=== PATIENT | male | born 1965 | race African-American/Black ===

== ENCOUNTER 2017-10-14 08:11 | Emergency (ER) | payer SELFPAY, BC ==
[2017-10-14 08:51] LABS: ADD MAN DIFF? NO
[2017-10-14 08:55] LABS: BASO % 0 % (0-3); EOS # 0.3 x10^3/uL (0.0-0.7); EOS % 5 % (0-3); HEMATOCRIT 44.6 % (39.0-53.0); HEMOGLOBIN 14.9 g/dL (13.0-17.5); LYMPH # 1.3 x10^3/uL (1.0-4.8); LYMPH % 22 % (24-48); MEAN CORPUSCULAR HEMOGLOBIN 27 pg (25-35); MEAN CORPUSCULAR HGB CONC 33 g/dL (31-37); MEAN CORPUSCULAR VOLUME 80 fL (79-100); MONO # 0.7 x10^3/uL (0.0-1.1); MONO % 12 % (0-9); NEUT # 3.8 x10^3uL (1.8-7.7); NEUT % 62 % (31-73); PLATELET COUNT 213 x10^3/uL (140-400); RED BLOOD COUNT 5.57 x10^6/uL (4.30-5.70); RED CELL DISTRIBUTION WIDTH 14.2 % (11.5-14.5); WHITE BLOOD COUNT 6.2 x10^3/uL (4.0-11.0)
[2017-10-14 09:09] LABS: ANION GAP 6 (6-14); BLOOD UREA NITROGEN 11 mg/dL (8-26); CALCIUM 10.2 mg/dL (8.5-10.1); CARBON DIOXIDE 28 mmol/L (21-32); CHLORIDE 105 mmol/L (98-107); CREATININE 0.8 mg/dL (0.7-1.3); GFR 123.8; GLUCOSE 117 mg/dL (70-99); SODIUM 139 mmol/L (136-145)
[2017-10-14 09:14] LABS: ALBUMIN 3.7 g/dL (3.4-5.0); ALK PHOS 114 U/L (46-116); ALT (SGPT) 51 U/L (16-63); AST (SGOT) 32 U/L (15-37); DIRECT BILIRUBIN 0.1 mg/dL (0.0-0.2); LIPASE 269 U/L (73-393); TOTAL BILIRUBIN 0.3 mg/dL (0.2-1.0); TOTAL PROTEIN 6.8 g/dL (6.4-8.2)
[2017-10-14] MEDS ORDERED: CONTRAST GIVEN MC ×2 (09:15)
[2017-10-14 09:21] LABS: NT-PRO BNP 9 pg/mL (0-124)
[2017-10-14 09:23] LABS: TROPONINI < 0.017 ng/mL (0.000-0.055)
[2017-10-14] MEDS: IOHEXOL 300 MG/ML 100ML VIAL. IV ×2 (09:26)
[2017-10-14] MEDS ORDERED: IV NORMAL SALINE 1000ML BAG 1,000 ML IV ×2 (10:34)
[2017-10-14] MEDS ORDERED: ONDANSETRON PF 4 MG/2 ML VIAL. IV ×2 (10:45)
[2017-10-14] MEDS ORDERED: MORPHINE SULFATE 2 MG/ML DISP.SYRIN. IV ×2 (10:45)
[2017-10-14] MEDS: ASPIRIN CHEWABLE 81 MG TABLET. PO ×2 (10:53)
[2017-10-14 11:21] LABS: THYROID STIM HORMONE (TSH) 0.989 uIU/mL (0.358-3.74)
== END 2017-10-14 11:00 | disposition left against medical advice (07) ==
LOC: ER 08:11
DX: R07.89 Other chest pain (principal); I10 Essential (primary) hypertension; G47.33 Obstructive sleep apnea (adult) (pediatric); E11.9 Type 2 diabetes mellitus without complications; F17.200 Nicotine dependence, unspecified, uncomplicated; R22.2 Localized swelling, mass and lump, trunk; F10.20 Alcohol dependence, uncomplicated; E66.9 Obesity, unspecified; Z68.34 Body mass index [BMI] 34.0-34.9, adult
CPT/HCPCS: 36415; 71045; 71260; 80048; 80076; 83690; 83880; 84443; 84484; 85025; 93005; 99285-25; Q9967

== ENCOUNTER 2017-10-15 10:25 | Inpatient (IN) | payer SELFPAY ==
[2017-10-15 11:16] LABS: ADD MAN DIFF? NO
[2017-10-15 11:22] LABS: BASO % 1 % (0-3); EOS # 0.2 x10^3/uL (0.0-0.7); EOS % 4 % (0-3); HEMATOCRIT 44.9 % (39.0-53.0); HEMOGLOBIN 14.9 g/dL (13.0-17.5); LYMPH # 1.6 x10^3/uL (1.0-4.8); LYMPH % 30 % (24-48); MEAN CORPUSCULAR HEMOGLOBIN 27 pg (25-35); MEAN CORPUSCULAR HGB CONC 33 g/dL (31-37); MEAN CORPUSCULAR VOLUME 81 fL (79-100); MONO # 0.4 x10^3/uL (0.0-1.1); MONO % 7 % (0-9); NEUT # 3.1 x10^3uL (1.8-7.7); NEUT % 59 % (31-73); PLATELET COUNT 227 x10^3/uL (140-400); RED BLOOD COUNT 5.56 x10^6/uL (4.30-5.70); RED CELL DISTRIBUTION WIDTH 14.3 % (11.5-14.5); WHITE BLOOD COUNT 5.4 x10^3/uL (4.0-11.0)
[2017-10-15 11:32] LABS: ANION GAP 10 (6-14); BLOOD UREA NITROGEN 8 mg/dL (8-26); CALCIUM 10.4 mg/dL (8.5-10.1); CARBON DIOXIDE 26 mmol/L (21-32); CHLORIDE 105 mmol/L (98-107); CREATININE 0.7 mg/dL (0.7-1.3); GFR 144.4; GLUCOSE 152 mg/dL (70-99); PARTIAL THROMBOPLASTIN TIME 26 SEC (24-38); PROTHROMBIN TIME PATIENT 12.1 SEC (11.7-14.0); SODIUM 141 mmol/L (136-145)
[2017-10-15 11:37] LABS: TROPONINI < 0.017 ng/mL (0.000-0.055)
[2017-10-15 11:37] LABS: ALBUMIN 3.5 g/dL (3.4-5.0); ALK PHOS 109 U/L (46-116); ALT (SGPT) 50 U/L (16-63); AST (SGOT) 27 U/L (15-37); DIRECT BILIRUBIN 0.1 mg/dL (0.0-0.2); LIPASE 161 U/L (73-393); TOTAL BILIRUBIN 0.2 mg/dL (0.2-1.0); TOTAL PROTEIN 7.1 g/dL (6.4-8.2)
[2017-10-15 11:40] LABS: NT-PRO BNP 13 pg/mL (0-124)
[2017-10-15] MEDS ORDERED: MORPHINE SULFATE 2 MG/ML DISP.SYRIN. IV (12:30)
[2017-10-15] MEDS ORDERED: NITROGLYCERIN SUBLINGUAL 0.4 MG BOTTLE OF 25. SL (12:30)
[2017-10-15] MEDS ORDERED: ONDANSETRON PF 4 MG/2 ML VIAL. IV (12:30)
[2017-10-15] MEDS: ASPIRIN CHEWABLE 81 MG TABLET. PO (13:11)
[2017-10-15] MEDS: CARVEDILOL 12.5 MG TABLET. PO ×2 (15:01→17:53)
[2017-10-15] MEDS: LISINOPRIL 5 MG TABLET. PO (15:01)
[2017-10-15 15:50] LABS: TROPONINI < 0.017 ng/mL (0.000-0.055)
[2017-10-15 18:00] LABS: BARBITURATES NEG (NEG); BENZODIAZEPINES NEG (NEG); CANNABINOIDS NEG (NEG); COCAINE POS (NEG); METHADONE NEG (NEG); OPIATES NEG (NEG); PHENCYCLIDINE NEG (NEG)
[2017-10-15 18:04] LABS: AMPHETAMINE/METHAMPHETAMINE NEG (NEG); ETHANOL, URINE NEG (NEG)
[2017-10-15 19:02] LABS: TROPONINI < 0.017 ng/mL (0.000-0.055)
[2017-10-16 05:35] LABS: ADD MAN DIFF? NO; BASO # 0.1 x10^3/uL (0.0-0.2); BASO % 1 % (0-3); EOS # 0.2 x10^3/uL (0.0-0.7); EOS % 3 % (0-3); HEMATOCRIT 42.1 % (39.0-53.0); HEMOGLOBIN 14.3 g/dL (13.0-17.5); LYMPH % 33 % (24-48); MEAN CORPUSCULAR HEMOGLOBIN 27 pg (25-35); MEAN CORPUSCULAR HGB CONC 34 g/dL (31-37); MEAN CORPUSCULAR VOLUME 81 fL (79-100); MONO # 0.5 x10^3/uL (0.0-1.1); MONO % 8 % (0-9); NEUT # 3.2 x10^3uL (1.8-7.7); NEUT % 54 % (31-73); PLATELET COUNT 202 x10^3/uL (140-400); RED BLOOD COUNT 5.23 x10^6/uL (4.30-5.70); RED CELL DISTRIBUTION WIDTH 14.5 % (11.5-14.5)
[2017-10-16 05:48] LABS: ANION GAP 8 (6-14); BLOOD UREA NITROGEN 12 mg/dL (8-26); CALCIUM 10.6 mg/dL (8.5-10.1); CARBON DIOXIDE 24 mmol/L (21-32); CHLORIDE 106 mmol/L (98-107); CREATININE 0.8 mg/dL (0.7-1.3); GFR 123.8; GLUCOSE 100 mg/dL (70-99); POTASSIUM 3.9 mmol/L (3.5-5.1); SODIUM 138 mmol/L (136-145)
[2017-10-16] MEDS: CARVEDILOL 12.5 MG TABLET. PO ×2 (09:10→17:22)
[2017-10-16] MEDS: LISINOPRIL 5 MG TABLET. PO (09:11)
[2017-10-16] MEDS: FAMOTIDINE 20 MG TABLET. PO (09:11)
== END 2017-10-16 18:40 | disposition home or self-care (01) | DRG 640 ==
LOC: ER 10:25 → 2 SOUTH 12:12
DX: E83.52 Hypercalcemia (principal); I50.21 Acute systolic (congestive) heart failure; R07.89 Other chest pain; I11.0 Hypertensive heart disease with heart failure; E04.9 Nontoxic goiter, unspecified; E11.9 Type 2 diabetes mellitus without complications; E66.9 Obesity, unspecified; Z68.32 Body mass index [BMI] 32.0-32.9, adult; E78.5 Hyperlipidemia, unspecified; F12.90 Cannabis use, unspecified, uncomplicated; F14.10 Cocaine abuse, uncomplicated; Z82.49 Family history of ischemic heart disease and other diseases of the circulatory system; Z91.19 Patient's noncompliance with other medical treatment and regimen; F17.210 Nicotine dependence, cigarettes, uncomplicated; F19.10 Other psychoactive substance abuse, uncomplicated
CPT/HCPCS: 36415; 71045; 80048; 80076; 80307; 83690; 83880; 84484; 85025; 85610; 85730; 93005; 93306; 99285; 99285-25

== ENCOUNTER 2019-06-18 12:13 | Emergency (ER) | payer SELFPAY ==
[~2019-06-18] VITALS: Ht 182.9 cm; Wt 122.5 kg
[~2019-06-18 12:13] MED LIST: ASPI-612 PO; CARV12.511 PO; HYDR12.575 PO; LISI10TA2 PO
[2019-06-18] MEDS ORDERED: cloNIDine HCL 0.1 MG TABLET PO ONE ×2 (13:45→15:15)
--- NOTE | 2019-06-18 13:48 | PHYS DOC ---
Past Medical History Past Medical History: Diabetes-Type II, Hypertension, Other Additional Past Medical Histor: does not take meds for diabetes or htn Past Surgical History: No Surgical History Alcohol Use: Heavy Drug Use: Cocaine, Marijuana Adult General Chief Complaint Chief Complaint: HEADACHE HPI HPI 53-year-old male presents to the emergency department with complaints of elevated blood pressure. Patient has a history of hypertension, previously had been on 3 medications however has not taken them in a number of months. He states he started a new job has had some stresses associated with that. He denies any headache, chest pain, shortness of breath, nausea or vomiting. He states in the past he's had some migraine headaches however this relieved with Advil. Patient denies any headache or visual changes,. Nothing makes his symptoms worse, nothing makes his symptoms better. Review of Systems Review of Systems Constitutional: Denies fever or chills [] Eyes: Denies change in visual acuity, redness, or eye pain [] Respiratory: Denies cough or shortness of breath [] Cardiovascular: No additional information not addressed in HPI [] GI: Denies abdominal pain, nausea, vomiting, bloody stools or diarrhea [] Neurologic: Denies headache, focal weakness or sensory changes [] All other systems were reviewed and found to be within normal limits, except as documented in this note. Current Medications Current Medications Current Medications Medications (Trade) Dose Ordered Sig/Bernardo Start Time Stop Time Status Last Admin Dose Admin Clonidine HCl (Catapres) 0.1 mg 1X ONCE 06/18/19 15:15 06/18/19 15:16 Allergies Allergies Allergies Coded Allergies Type Severity Reaction Last Updated Verified No Known Drug Allergies 08/22/14 No Physical Exam Physical Exam Constitutional: Well developed, well nourished, no acute distress, non-toxic appearance. [] HENT: Normocephalic, atraumatic, bilateral external ears normal, oropharynx moist, no oral exudates, nose normal. [] Eyes: PERRLA, EOMI, conjunctiva normal, no discharge. [] Cardiovascular:Heart rate regular rhythm, no murmur [] Lungs & Thorax: Bilateral breath sounds clear to auscultation [] Abdomen: Bowel sounds normal, soft, no tenderness, no masses, no pulsatile masses. [] Skin: Warm, dry, no erythema, no rash. [] Extremities: No tenderness,no edema. [] Neurologic: Alert and oriented X 3, no focal deficits noted. [] Psychologic: Affect normal, judgement normal, mood normal. [] Current Patient Data Vital Signs Vital Signs Date Time Temp Pulse Resp B/P (MAP) Pulse Ox O2 Delivery O2 Flow Rate FiO2 06/18/19 13:45 93 160/108 06/18/19 13:27 98.0 16 95 Room Air 98.0 Lab Values Laboratory Tests Test 06/18/19 14:00 White Blood Count 7.8 x10^3/uL (4.0-11.0) Red Blood Count 5.67 x10^6/uL (4.30-5.70) Hemoglobin 15.6 g/dL (13.0-17.5) Hematocrit 45.0 % (39.0-53.0) Mean Corpuscular Volume 79 fL (79-100) Mean Corpuscular Hemoglobin 28 pg (25-35) Mean Corpuscular Hemoglobin Concent 35 g/dL (31-37) Red Cell Distribution Width 14.1 % (11.5-14.5) Platelet Count 257 x10^3/uL (140-400) Neutrophils (%) (Auto) 69 % (31-73) Lymphocytes (%) (Auto) 20 % (24-48) L Monocytes (%) (Auto) 7 % (0-9) Eosinophils (%) (Auto) 3 % (0-3) Basophils (%) (Auto) 1 % (0-3) Neutrophils # (Auto) 5.4 x10^3/uL (1.8-7.7) Lymphocytes # (Auto) 1.6 x10^3/uL (1.0-4.8) Monocytes # (Auto) 0.5 x10^3/uL (0.0-1.1) Eosinophils # (Auto) 0.3 x10^3/uL (0.0-0.7) Basophils # (Auto) 0.1 x10^3/uL (0.0-0.2) Sodium Level 143 mmol/L (136-145) Potassium Level 4.5 mmol/L (3.5-5.1) Chloride Level 110 mmol/L (98-107) H Carbon Dioxide Level 26 mmol/L (21-32) Anion Gap 7 (6-14) Blood Urea Nitrogen 16 mg/dL (8-26) Creatinine 1.1 mg/dL (0.7-1.3) Estimated GFR (Cockcroft-Gault) 85.1 BUN/Creatinine Ratio 15 (6-20) Glucose Level 115 mg/dL (70-99) H Calcium Level 11.8 mg/dL (8.5-10.1) H Total Bilirubin 0.3 mg/dL (0.2-1.0) Aspartate Amino Transferase (AST) 10 U/L (15-37) L Alanine Aminotransferase (ALT) 20 U/L (16-63) Alkaline Phosphatase 135 U/L (46-116) H Total Protein 7.3 g/dL (6.4-8.2) Albumin 3.9 g/dL (3.4-5.0) Albumin/Globulin Ratio 1.1 (1.0-1.7) Laboratory Tests 06/18/19 14:00 Laboratory Tests 06/18/19 14:00 EKG EKG [] Radiology/Procedures Radiology/Procedures [] Course & Med Decision Making Course & Med Decision Making Pertinent Labs and Imaging studies reviewed. (See chart for details) []53-year-old male presents to the emergency department with complaints of elevated blood pressure. Patient has a history of hypertension, previously had been on 3 medications however has not taken them in a number of months. He states he started a new job has had some stresses associated with that. He denies any headache, chest pain, shortness of breath, nausea or vomiting. He states in the past he's had some migraine headaches however this relieved with Advil. Patient denies any headache or visual changes,. Nothing makes his symptoms worse, nothing makes his symptoms better. Clonidine 0.1 mg by mouth �1. Blood pressure improved to 163/100. We'll plan for repeat clonidine 0.1. Labs reviewed and unremarkable Plan for refill patient's prescriptions as he has not been on them for a number of months. Follow-up primary care physician as an outpatient. Discussed dc plans Dragza Disclaimer Dragon Disclaimer This electronic medical record was generated, in whole or in part, using a voice recognition dictation system. Departure Departure Impression: Primary Impression: Accelerated hypertension Disposition: 01 HOME, SELF-CARE Condition: IMPROVED Referrals: NO PCP (PCP) Patient Instructions: Hypertension Additional Instructions: Recommend follow up with PCP 3 - 5 days Return to the ER with worsening symptoms, intractable pain, fever, altered mental status Tylenol/Motrin as needed for pain Take new medications as prescribed Scripts Carvedilol (COREG ) 12.5 Mg Tablet 12.5 MG PO BIDWMEALS for CARDIAC for 30 Days, #60 TAB Prov: LISSETTE JURADO MD 06/18/19 Hydrochlorothiazide (HYDROCHLOROTHIAZIDE TABLET) 12.5 Mg Tablet 12.5 MG PO DAILY for DIURETIC for 30 Days, #30 TAB 0 Refills Prov: LISSETTE JURADO MD 06/18/19 LISSETTE JURADO MD Jun 18, 2019 13:48
[2019-06-18 14:12] LABS: BASO # 0.1 x10^3/uL (0.0-0.2); BASO % 1 % (0-3); EOS # 0.3 x10^3/uL (0.0-0.7); EOS % 3 % (0-3); HEMOGLOBIN 15.6 g/dL (13.0-17.5); LYMPH # 1.6 x10^3/uL (1.0-4.8); LYMPH % 20 % (24-48); MEAN CORPUSCULAR HEMOGLOBIN 28 pg (25-35); MEAN CORPUSCULAR HGB CONC 35 g/dL (31-37); MEAN CORPUSCULAR VOLUME 79 fL (79-100); MONO # 0.5 x10^3/uL (0.0-1.1); MONO % 7 % (0-9); NEUT # 5.4 x10^3/uL (1.8-7.7); NEUT % 69 % (31-73); PLATELET COUNT 257 x10^3/uL (140-400); RED BLOOD COUNT 5.67 x10^6/uL (4.30-5.70); RED CELL DISTRIBUTION WIDTH 14.1 % (11.5-14.5); WHITE BLOOD COUNT 7.8 x10^3/uL (4.0-11.0)
[2019-06-18 14:24] LABS: CALCIUM 11.8 mg/dL (8.5-10.1); CREATININE 1.1 mg/dL (0.7-1.3); GFR 85.1; POTASSIUM 4.5 mmol/L (3.5-5.1)
[2019-06-18 14:30] LABS: ALBUMIN 3.9 g/dL (3.4-5.0); ALBUMIN/GLOBULIN RATIO 1.1 (1.0-1.7); TOTAL BILIRUBIN 0.3 mg/dL (0.2-1.0); TOTAL PROTEIN 7.3 g/dL (6.4-8.2)
[2019-06-18] MEDS ORDERED: HYDR12.58 PO (15:15)
[2019-06-18] MEDS ORDERED: CARV12.5 PO (15:15)
[2019-06-18 15:30] VITALS: BP 152/92
== END 2019-06-18 15:27 | disposition home or self-care (01) ==
LOC: ER 12:13
DX: I10 Essential (primary) hypertension (principal); G43.909 Migraine, unspecified, not intractable, without status migrainosus; E11.9 Type 2 diabetes mellitus without complications; F10.20 Alcohol dependence, uncomplicated; Y90.9 Presence of alcohol in blood, level not specified
CPT/HCPCS: 36415; 80053; 85025; 99284

== ENCOUNTER 2020-07-19 17:37 | Emergency (ER) | payer SELFPAY ==
[~2020-07-19] VITALS: Ht 182.9 cm; Wt 116.8 kg
[~2020-07-19 17:37] MED LIST changes: -ASPI-612 PO; +ASPI-886 PO; +CARV12.5 PO; +HYDR12.58 PO
[2020-07-19] MEDS ORDERED: cloNIDine HCL 0.1 MG TABLET PO ONE (18:15)
[2020-07-19 18:49] VITALS: BP 158/102
[2020-07-19] MEDS ORDERED: CARV12.5 PO (18:50)
[2020-07-19] MEDS ORDERED: HYDR12.59 PO (18:50)
--- NOTE | 2020-07-19 18:51 | PHYS DOC ---
Past Medical History Past Medical History: Hypertension Additional Past Medical Histor: does not take meds for diabetes or htn Past Surgical History: No Surgical History Smoking Status: Current Every Day Smoker Alcohol Use: Occasionally Drug Use: Cocaine, Marijuana General Adult EDM: Chief Complaint: MEDICATION REFILL HPI: HPI: Patient is a 54 year old male with history of hypertension who presents to the ED today requesting a refill of his blood pressure medicines. Patient states he is supposed to take Coreg as well as HCTZ. He states he has not taken this medications for a long time. He states he developed an intermittent headache 4 days ago and realized he needs to be back on his medications. He states he does not take the medicines as required because he has no insurance and hence has trouble affording the medications. Denies this being the worst headache in his life. He states is a mild intermittent frontal headache that he has had before and usually symbolize us to him his blood pressure high. Denies any nausea vomiting. Denies any chest pain or shortness of breath. He is requesting no work-up. Review of Systems: Review of Systems: Constitutional: Denies fever or chills. [] Eyes: Denies change in visual acuity. [] HENT: Denies nasal congestion or sore throat. [] Respiratory: Denies cough or shortness of breath. [] Cardiovascular: Denies chest pain or edema. [] GI: Denies abdominal pain, nausea, vomiting, bloody stools or diarrhea. [] : Denies dysuria. [] Musculoskeletal: Denies back pain or joint pain. [] Integument: Denies rash. [] Neurologic: Reports headache, requests refill for blood pressure medicine, denies focal weakness or sensory changes. [] Psychiatric: Denies depression or anxiety. [] Heart Score: Risk Factors: Risk Factors: DM, Current or recent (<one month) smoker, HTN, HLP, family history of CAD, obesity. Risk Scores: Score 0 - 3: 2.5% MACE over next 6 weeks - Discharge Home Score 4 - 6: 20.3% MACE over next 6 weeks - Admit for Clinical Observation Score 7 - 10: 72.7% MACE over next 6 weeks - Early Invasive Strategies Current Medications: Current Medications Medications (Trade) Dose Ordered Sig/Bernardo Start Time Stop Time Status Last Admin Dose Admin Clonidine HCl (Catapres) 0.2 mg 1X ONCE 07/19/20 18:15 07/19/20 18:16 DC 07/19/20 18:20 0.2 MG Allergies: Allergies: Allergies Coded Allergies Type Severity Reaction Last Updated Verified No Known Drug Allergies 08/22/14 No Physical Exam: PE: Constitutional: Well developed, well nourished, no acute distress, non-toxic appearance. [] HENT: Normocephalic, atraumatic, bilateral external ears normal, oropharynx moist, no oral exudates, nose normal. [] Eyes: PERRLA, EOMI, conjunctiva normal, no discharge. [] Neck: Normal range of motion, no tenderness, supple, no stridor. [] Cardiovascular:Heart rate regular rhythm, no murmur [] Lungs & Thorax: Bilateral breath sounds clear to auscultation [] Abdomen: Bowel sounds normal, soft, no tenderness, no masses, no pulsatile masses. [] Skin: Warm, dry, no erythema, no rash. [] Back: No tenderness, no CVA tenderness. [] Extremities: No tenderness, no cyanosis, no clubbing, ROM intact, no edema. [] Neurologic: Alert and oriented X 3, normal motor function, normal sensory function, no focal deficits noted. Cranial nerves II through XII intact Psychologic: Affect normal, judgement normal, mood normal. [] Current Patient Data: Vital Signs: Vital Signs Date Time Temp Pulse Resp B/P (MAP) Pulse Ox O2 Delivery O2 Flow Rate FiO2 07/19/20 18:20 96 155/100 07/19/20 17:52 98.2 18 96 Room Air 98.2 EKG: EKG: [] Radiology/Procedures: Radiology/Procedures: [] Course & Med Decision Making: Course & Med Decision Making Pertinent Labs and Imaging studies reviewed. (See chart for details) This is a 54-year-old male patient presenting to the ED today requesting a refill for his blood pressure medicine Coreg and HCTZ. Patient does not remember the last time he took this medications but he states he usually comes to the ED for refills because he has no PCP and has no medical insurance. He states the reason he came in today is because he had a headache and this reminded him his blood pressure is high and needs to be treated. Denies this being the worst headache in his life. Denies any other associated symptoms with the headache. Prescriptions for Coreg and HCTZ given. Clinic list provided. Brady Disclaimer: Brady Disclaimer: This electronic medical record was generated, in whole or in part, using a voice recognition dictation system. Departure Departure Impression: Primary Impression: Hypertension Qualified Codes: I10 - Essential (primary) hypertension Additional Impression: Medication refill Disposition: 01 DC HOME SELF CARE/HOMELESS Condition: STABLE Referrals: NO PCP (PCP) follow up with your doctor in 1 week Patient Instructions: Hypertension Additional Instructions: Please follow-up with one of the doctors from the list provided oh one of the local clinics. Come back to the ED at any point symptoms worsen. Scripts Hydrochlorothiazide (Hydrochlorothiazide) 12.5 Mg Capsule 12.5 MG PO BID, #90 CAP 1 Refill Prov: HU WISE APRN 07/19/20 Carvedilol (COREG ) 12.5 Mg Tablet 12.5 MG PO BIDWMEALS for CARDIAC, #90 TAB 1 Refill Prov: HU WISE APRN 07/19/20 HU WISE APRN Jul 19, 2020 18:51
== END 2020-07-19 19:06 | disposition home or self-care (01) ==
LOC: ER 17:37
DX: R51.9 Headache, unspecified (principal); Z76.0 Encounter for issue of repeat prescription; I10 Essential (primary) hypertension; F17.200 Nicotine dependence, unspecified, uncomplicated
CPT/HCPCS: 99281; 99282; 99283